=== PATIENT | male | born 1980 | race Caucasian/White ===

== ENCOUNTER 2016-12-21 09:43 | Inpatient (IN) | payer SELFPAY ==
[~2016-12-21] VITALS: Ht 177.8 cm; Wt 77.1 kg
--- NOTE | 2016-12-21 09:43 | NUR ---
Patient BIBA BLS, transferred to bed 3. RN evaluating patient at bedside.
--- NOTE | 2016-12-21 09:46 | NUR ---
Dr. Rodrigues evaluating patient at bedside.
[2016-12-21 09:54] VITALS: BP 137/86
--- NOTE | 2016-12-21 10:11 | NUR ---
36/M BIBA TO ED FOR ETOH. PT C/O LEFT UPPER QUADRANT "LIVER" PAIN STARTING TODAY. PAIN 06/03. PT APPEARS INTOXICATED. LUNGS CLEAR BILAT. HR EVEN AND REGULAR. AAOX4. VSS. NO SIGNS OF DISTRESS.
--- NOTE | 2016-12-21 10:20 | NUR ---
Dr. Rodrigues evaluating patient at bedside.
[2016-12-21] MEDS ORDERED: MULTIVITAMIN-12 10 ML, THIAMINE 100 MG, MAGNESIUM SULFATE 50% 2,000 MG, FOLIC ACID 5 MG... IV ONE ×5 (10:24)
[2016-12-21] MEDS ORDERED: LORazepam 0.5 MG TAB PO ONE (10:25)
[2016-12-21] MEDS ORDERED: ONDANSETRON 4 MG ODT PO ONE (10:25)
[2016-12-21 10:47] LABS: BASOPHILS # (AUTO) 0.1 K/uL (0.00-0.22); BASOPHILS % (AUTO) 1.7 % (0.0-2.0); EOSINOPHILS # (AUTO) 0.2 K/uL (0-0.4); HEMATOCRIT 39.1 % (36-52); HEMOGLOBIN 12.8 g/dL (12.0-18.0); LYMPHOCYTES # (AUTO) 1.8 K/uL (2.0-11.5); LYMPHOCYTES % (AUTO) 29.5 % (20.5-51.1); MEAN CORPUSCULAR HEMOGLOBIN 28 pg (27-31); MEAN CORPUSCULAR HGB CONC 33 g/dL (33-37); MEAN CORPUSCULAR VOLUME 86 fL (80-94); MONOCYTES # (AUTO) 0.3 K/uL (0.8-1.0); MONOCYTES % (AUTO) 5.3 % (1.7-9.3); NEUTROPHILS # (AUTO) 3.8 K/uL (1.8-7.7); NEUTROPHILS % (AUTO) 59.5 % (42.2-75.2); PLATELET COUNT (AUTO) 214 K/uL (140-450); RED BLOOD CELL COUNT(AUTO) 4.53 MIL/uL (4.20-6.10); RED CELL DISTRIBUTION WIDTH 15.6 % (11.6-13.7); WHITE BLOOD COUNT (AUTO) 6.2 K/uL (4.8-10.8)
[2016-12-21 11:00] LABS: ANION GAP 17.4 (8-16); CALCIUM 8.2 mg/dL (8.5-10.1); CARBON DIOXIDE 23.6 mmol/L (21-32); CREATININE 0.7 mg/dL (0.6-1.3)
[2016-12-21 11:02] LABS: AMPHETAMINE, URINE NEG. ng/ml (NEG <=1000); BARBITURATE, URINE NEG. ng/ml (NEG <=200); BENZODIAZEPINE, URINE NEG. ng/mL (NEG <=200); CANNABINOID, URINE NEG. ng/mL (NEG <=50); COCAINE, URINE NEG. ng/mL (NEG <=300); OPIATE, URINE NEG. ng/mL (NEG <=2000); PHENCYCLIDINE SCREEN,URINE NEG. ng/mL (NEG <=25)
[2016-12-21 11:09] LABS: TOTAL BILIRUBIN 0.4 mg/dL (0.0-1.0); TOTAL PROTEIN, SERUM 8.4 g/dL (6.4-8.2)
--- NOTE | 2016-12-21 11:35 | NUR ---
Patient appears to be resting comfortably in bed. Vital Signs within normal limits. Respirations even and unlabored.
--- NOTE | 2016-12-21 12:30 | NUR ---
MEAL TRAY DELIEVERED. PT TOLERATED WELL
[2016-12-21] MEDS ORDERED: NACL 0.9% 1,000 ML IV SCH ×2 (12:36)
[2016-12-21] MEDS ORDERED: LORazepam 2 MG/ML VIAL IVP PRN (12:40)
[2016-12-21] MEDS ORDERED: ACETAMINOPHEN 325 MG TAB PO PRN (12:40)
[2016-12-21] MEDS ORDERED: HYDROcodone/APAP 5/325 MG 1 TAB TAB PO PRN (12:40)
[2016-12-21] MEDS ORDERED: ONDANSETRON 4 MG/2 ML VIAL IVP PRN (12:40)
[2016-12-21] MEDS ORDERED: MORPHINE SULFATE 2 MG/ML SYR IVP PRN (12:40)
[2016-12-21] MEDS ORDERED: LORazepam 1 MG TAB PO SCH (13:00)
--- NOTE | 2016-12-21 13:11 | NUR ---
Patient will be admitted to care of DR LEWIS. Admited to TELE. Will go to [id number]. Belongings list completed. Report to DOROTHEA.
[2016-12-21 13:24] LABS: FREE T4 (FREE THYROXINE) 0.81 ng/dL (0.76-1.46); THYROID STIMULATING HORMONE 0.43 uIU/mL (0.34-3.76)
--- NOTE | 2016-12-21 13:40 | NUR ---
PT ARRIVED TO UNIT FROM ER VIA GURNEY. PT IS AAOX4 WITH EPISODES OF CONFUSION. ON ROOM AIR. IV TO RIGHT AC 18G, INFUSING WELL. SKIN INTACT, BUT FEET AND HANDS ARE DIRTY PT STATES HE IS HOMELESS, PT REFUSED SHOWER OR SPONGE BATH. INITIAL ASSESSMENT COMPLETED. REVIEWED PLAN OF CARE WITH PT, PT VERBALIZED UNDERSTANDING. ALL SAFETY PRECAUTIONS MET. CALL LIGHT WITHIN REACH. WILL CONTINUE TO MONITOR.
[2016-12-21 13:45] VITALS: BP 146/79
[2016-12-21] MEDS ORDERED: QUET200T PO (14:39)
[2016-12-21] MEDS ORDERED: FLUO10CA21 PO (14:39)
[2016-12-21] MEDS ORDERED: FLUoxetine 20 MG CAP PO SCH (14:45)
[2016-12-21 16:00] VITALS: BP 145/83
--- NOTE | 2016-12-21 17:25 | NUR ---
PT WANTS TO SIGNED AMA, EXPLAINED THE RISK OF LEAVING AGAINST MEDICAL ADVICE, PT VERBALIZED UNDERSTANDING. AND STATES HE STILL WANTS TO GO. AWARE. IV REMOVED TIP INTACT. PAPERWORK SIGNED.
[2016-12-21] MEDS ORDERED: QUEtiapine FUMARATE 100 MG TAB PO SCH (21:00)
[2016-12-22] MEDS ORDERED: THIAMINE 100 MG TAB PO SCH (09:00)
[2016-12-22] MEDS ORDERED: DOCUSATE SODIUM 100 MG GELCAP PO SCH (09:00)
[2016-12-22] MEDS ORDERED: MULTIVITAMIN 1 TAB PO SCH (09:00)
[2016-12-22] MEDS ORDERED: FLUoxetine 20 MG CAP PO SCH (09:00)
[2016-12-22] MEDS ORDERED: FOLIC ACID 1 MG TAB PO SCH (09:00)
[2016-12-23 09:09] LABS: T4 (THYROXINE) 5.9 ug/dL (4.5-12.0)
[2016-12-24 06:21] LABS: HEMOGLOBIN A1C 5.5 % (4.8-5.6)
== END 2016-12-21 16:25 | disposition left against medical advice (07) | DRG 91 ==
LOC: MED 09:43 → MTU 13:05
PROVIDERS: ADMIT Student in an Organized Health Care Education/Training Program; ATTEND Student in an Organized Health Care Education/Training Program
DX: G92 Toxic encephalopathy (principal); K85.90 Acute pancreatitis without necrosis or infection, unspecified; F10.129 Alcohol abuse with intoxication, unspecified; F31.9 Bipolar disorder, unspecified; F29 Unspecified psychosis not due to a substance or known physiological condition; F20.9 Schizophrenia, unspecified; F17.210 Nicotine dependence, cigarettes, uncomplicated; B19.20 Unspecified viral hepatitis C without hepatic coma; F19.10 Other psychoactive substance abuse, uncomplicated; F14.90 Cocaine use, unspecified, uncomplicated; F11.90 Opioid use, unspecified, uncomplicated; Z53.21 Procedure and treatment not carried out due to patient leaving prior to being seen by health care provider; F12.90 Cannabis use, unspecified, uncomplicated; F15.90 Other stimulant use, unspecified, uncomplicated; Y90.8 Blood alcohol level of 240 mg/100 ml or more; Y92.89 Other specified places as the place of occurrence of the external cause; Z59.0 Homelessness; Z87.828 Personal history of other (healed) physical injury and trauma
CPT/HCPCS: 36415; 76705; 80053; 80305; 82150; 83036; 83615; 83690; 84436; 84439; 84443; 84479; 84484; 85025; 87081; 96365; 96366; 99285; A9153; G0482; J2270; J3411; J3475; J3490; J7030; Q0092; S0119